=== PATIENT | male | born 1945 | race Caucasian/White ===

== ENCOUNTER 2016-07-28 06:20 | Day surgery (SDC) | payer OTHER ==
[~2016-07-28] VITALS: Ht 170.2 cm; Wt 63.1 kg
[2016-07-28 06:59] VITALS: Ht 170.2 cm; Wt 63.1 kg
[2016-07-28] MEDS ORDERED: HYDR12.58 PO (07:14)
[2016-07-28] MEDS ORDERED: GLIP5TAB13 PO (07:14)
[2016-07-28] MEDS ORDERED: QUIN20TA23 PO (07:14)
[2016-07-28] MEDS ORDERED: METF-382 PO (07:14)
[2016-07-28] MEDS ORDERED: QUIN5TAB15 PO (07:14)
[2016-07-28] MEDS ORDERED: MEVA40 PO (07:14)
[2016-07-28] MEDS ORDERED: ASPI81TA16 PO (07:14)
[2016-07-28] MEDS ORDERED: PROPOFOL 40 ML ONE (07:35)
[2016-07-28 07:40] VITALS: BP 146/79; PULSE 70; RESP 18
[2016-07-28 08:32] VITALS: BP 157/90; PULSE 62; RESP 16
--- NOTE | 2016-07-28 16:54 | GILP ---
DATE OF PROCEDURE: 07/28/2016 NAME OF PROCEDURE: Colonoscopy and biopsy. SURGEON: Albert Ellis MD PREOPERATIVE DIAGNOSIS: Screening colonoscopy. POSTOPERATIVE DIAGNOSES: 1. Colonoscopy all the way to the cecum. 2. Rectal polyp was removed using the biopsy forceps. 3. Internal hemorrhoids. INDICATION FOR THE PROCEDURE: Mr. Medardo Tsang is a 71-year-old male patient who was scheduled for s creening colonoscopy. The procedure and possible complications are well explained to the patient. The patient understood and consented to the procedure. DESCRIPTION OF PROCEDURE: Under the influence of anesthesia, the colonoscope was carefully introduc ed in the rectum and under direct vision, it was advanced all the way to the cecum. FINDINGS: The patient had a rectal polyp and it was removed using the biopsy forceps. He had inter nal hemorrhoids. He tolerated the procedure very well and there was no complication from the procedure. At the end o f the procedure, he was awake with stable vital signs and he was discharged home to the care of his family. IMPRESSION: 1. Colonoscopy all the way to the cecum. 2. Rectal polyp was removed using the biopsy forceps. 3. Internal hemorrhoids. PLAN: 1. Await histopathology report. 2. The patient will not need another screening colonoscopy. Dictated By: ALBERT NAIK/PAUL Conf#: [id number] DID#: [id number] CC: ABLERT ELLIS MD;*End*
== END 2016-07-28 08:22 | disposition home or self-care (01) ==
LOC: GIL 06:20
PROVIDERS: ATTEND Internal Medicine Gastroenterology
DX: Z12.11 Encounter for screening for malignant neoplasm of colon (principal); K62.1 Rectal polyp; K64.8 Other hemorrhoids; E11.9 Type 2 diabetes mellitus without complications; I12.9 Hypertensive chronic kidney disease with stage 1 through stage 4 chronic kidney disease, or unspecified chronic kidney disease; N18.9 Chronic kidney disease, unspecified
CPT/HCPCS: 82962; 88305